=== PATIENT | female | born 1990 | race Caucasian/White ===

== ENCOUNTER 2016-09-05 22:53 | Emergency (ER) | payer OTHER ==
[2016-09-05 22:58] VITALS: RESP 16
[2016-09-05] MEDS ORDERED: TDAP ADULT 0.5 ML INJ (BOOSTRIX) IM ONE (23:14)
[2016-09-06] MEDS ORDERED: CEPHALEXIN 500 MG CAP PO ONE (00:33)
--- NOTE | 2016-09-06 01:13 | EDPHY ---
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 Approximately an hour and a half ago she was walking her dog downhill when she tripped and fell striking her knee against a log and cutting it open. She has noted a significant laceration. There has been bleeding has been controlled with a dressing. She states she can still move the knee. She is ambulating well. She denies abnormal coolness or paresthesias in the leg. No other trauma reported. She is unsure of her last tetanus shot. - Personal History LMP (Females 10-55): 1-7 Days Ago Current Tetanus/Diphtheria Vaccine: No Current Tetanus Diphtheria and Acellular Pertussis (TDAP): No Tetanus Vaccine Date: WITHIN 10 YRS - Medical/Surgical History Hx Asthma: No Hx Chronic Respiratory Disease: No Hx Diabetes: No Hx Cardiac Disease: No Hx Renal Disease: No Hx Cirrhosis: No Hx Alcoholism: No Hx HIV/AIDS: No Hx Splenectomy or Spleen Trauma: No Other PMH: DENIES - Social History Smoking Status: Current every day smoker - Physical Exam Exam: General: Alert, nontoxic Skin: There is a 7 cm laceration inferior to the right knee that is midline. It is explored to its base without evidence of deep structure injury or foreign body contamination. Musculoskeletal: Patient right knee and leg is nontender to palpation. She is flexing and extending the knee well without difficulty. The knee joint appears stable. Vascular: DP and PT pulses 2+. Neurologic: Sensation intact throughout the right leg. Constitutional: Initial Vital Signs Temperature (C) 36.6 C 09/05/16 22:56 Heart Rate 79 09/05/16 22:56 Respiratory Rate 16 09/05/16 22:56 Blood Pressure 120/85 H 09/05/16 22:56 O2 Sat (%) 95 09/05/16 22:56 O2 Delivery Mode Room Air Allergies/Adverse Reactions: gluten Allergy (Verified 09/05/16 22:56) Home Medications: Medication Instructions Recorded Cephalexin [Keflex] 500 mg PO QID 7 Days 09/06/16 Medical Decision Making - Diagnostics Imaging: X-ray series of the right knee does show soft tissue injury, no bony fractures or foreign bodies appreciated Procedures: Procedure: Laceration repair. Verbal consent was obtained from the patient. The 7 cm laceration on the right leg was anesthetized in the usual fashion. The wound was irrigated, draped and explored to its base with a gloved finger. There were no deep structures involved. No tendon injury was identified. The wound was repaired with 4 0 Ethilon, 14 simple interrupted sutures. The wound repair was simple. The procedure was performed by myself. ED Course/Re-evaluation: Patient seen under the supervision of my secondary supervising physician Dr. Zari Hunter. Patient presents to the emergency department for a right leg laceration inferior to the right knee. Patient is nontoxic. Her leg appears neurovascularly intact. The wound is thoroughly explored without evidence of foreign body contamination or deep structure injury. X-ray is obtained and unremarkable. The wound is copiously irrigated with 3 L of normal saline using a [place]. It is then repaired as per above note and dressed. Patient will be started on antibiotics. Patient will be discharged home. Home care was discussed. She is referred to orthopedics for recheck. Strict return precautions are given. Patient voiced understanding and agreement with plan. Differential Diagnosis: Included but not limited to laceration, deep structure injury, foreign body contamination - Data Points Medications Given: Discontinued Medications Cephalexin HCl (Keflex) 500 mg PO EDNOW ONE PRN Reason: Protocol Stop: 09/06/16 00:34 Last Admin: 09/06/16 00:36 Dose: 500 mg Diphtheria/Tetanus/Acell Pertussis (Boostrix) 0.5 ml IM .ONCE ONE Stop: 09/05/16 23:15 Last Admin: 09/05/16 23:39 Dose: 0.5 ml Departure - Departure Disposition: Home, Routine, Self-Care Clinical Impression: Leg laceration Qualifiers: Encounter type: initial encounter Laterality: right Qualified Code(s): S81.811A - Laceration without foreign body, right lower leg, initial encounter Condition: Good Instructions: Care For Your Stitches (ED), Laceration (ED), Acute Wound Care ( ED) Additional Instructions: Follow-up with an orthopedic doctor for continued evaluation and care Stitches to be removed in 14 days If symptoms worsen or new symptoms develop return to the emergency department for recheck Referrals: NONE *PRIMARY CARE P,. [Primary Care Provider] - As per Instructions Grace Burrows MD [Medical Doctor] - As per Instructions Prescriptions: Cephalexin [Keflex] 500 mg PO QID 7 Days
[2016-09-06 01:23] VITALS: BP 118/65; PULSE 74; TEMP 98.1; O2SAT 96
== END 2016-09-06 01:23 | disposition home or self-care (01) ==
PROC: 0HQKXZZ Repair Right Lower Leg Skin, External Approach (ICD-10-PCS; principal; 2016-09-05)
DX: S81.811A Laceration without foreign body, right lower leg, initial encounter (principal); Z23 Encounter for immunization; W01.0XXA Fall on same level from slipping, tripping and stumbling without subsequent striking against object, initial encounter; Y92.828 Other wilderness area as the place of occurrence of the external cause; Y99.8 Other external cause status; Y93.K1 Activity, walking an animal; F17.200 Nicotine dependence, unspecified, uncomplicated

== ENCOUNTER 2016-09-25 22:51 | Emergency (ER) | payer OTHER ==
[2016-09-25 22:58] VITALS: BP 128/88; PULSE 75; RESP 18; TEMP 97.7; O2SAT 97
--- NOTE | 2016-09-25 23:27 | EDPHY ---
H & P Time Seen by Provider: 09/25/16 23:10 HPI/ROS: CHIEF COMPLAINT: Right knee laceration HISTORY OF PRESENT ILLNESS: 26-year-old female was initially seen emergency department 09/06/2016 after she sustained an accidental laceration to her right knee at which point she had wound closure. The stitches were subsequently removed by friend on day 13 as she did not feel like returning to the ER. States that the wound had been healing well however tonight she bumped the area and opened again. PHYSICAL EXAM (Prior to examination, patient consented to physical exam, hands were washed and my usual and customary physical exam procedures followed) 1) GENERAL: Well-developed, well-nourished, alert and oriented. Appears to be in no acute distress. 2) HEAD: Normocephalic 3) HEENT: sclera anicteric 4) LUNGS: Breathing comfortably. 5) SKIN: on the right knee patient has a 4 cm flap laceration with viable flap tissue which does not appear to have granulated in any significant manner. There are no signs of infection. The wound is flap open . There is no erythema. No discharge. No fetid odor. 6) MUSCULOSKELETAL: full flexion extension of the right knee without deficit. Smoking Status: Current every day smoker Constitutional: Initial Vital Signs Temperature (C) 36.5 C 09/25/16 22:56 Heart Rate 75 09/25/16 22:56 Respiratory Rate 18 09/25/16 22:56 Blood Pressure 128/88 H 09/25/16 22:56 O2 Sat (%) 97 09/25/16 22:56 O2 Delivery Mode Room Air Allergies/Adverse Reactions: gluten Allergy (Verified 09/25/16 22:55) Home Medications: Medication Instructions Recorded Cephalexin [Keflex] 500 mg PO TID 5 Days 09/25/16 MDM/Departure - MDM Procedures: Procedure: Laceration repair. I explained the indications, risks and benefits for both laceration repair and anesthetic administration. Verbal consent was obtained from the patient . The laceration on the right knee was anesthetized using 0.5% bupivicaine with epinephrine . After anesthetic administered the patient was observed for a period of time and had no apparent adverse effects. The wound was cleaned, prepped, draped in normal sterile fashion and explored to its base. No foreign body seen, no foreign bodies palpated. The wound was repaired with 5 simple interrupted 4 0 Vicryl subcutaneous sutures and 3 horizontal mattress 4 0 Prolene sutures. The wound repair was complex. The procedure was performed by myself. Patient has been informed that scarring will occur, although efforts have been made to minimize this. ED Course/Re-evaluation: This patient has a laceration which initially occurred 22 days ago. She did not seek medical attention to have the stitches removed. States that the wound dehisced earlier this evening. Surprisingly, on exam, there appears to be very little healing that has occurred on this wound. Does not appear infected. Because the wound is a flap and is exposed area I do not think that leaving the area to heal via secondary intention is appropriate, safe, therapeutic option as I am concerned about infection and the tissue catching on clothing and similar. Subsequently, the wound was gently reattached, tacked together. She has been informed however that this tissue may necrose and that it may not take given the length of time that has passed already. She has been informed that she may necessitate revision of this area as well. I am starting her on prophylactic Keflex and I am recommending she follow up with orthopedic surgery as she may need wound revision. She is agreeable with this plan. - Depart Disposition: Home, Routine, Self-Care Clinical Impression: Laceration of right knee Qualifiers: Encounter type: initial encounter Qualified Code(s): S81.011A - Laceration without foreign body, right knee, initial encounter Condition: Good Instructions: Care For Your Stitches (ED), Laceration (ED) Additional Instructions: Return to the ER if you develop redness, swelling, discharge, warmth to the wound, red streaks going up your leg, or any other symptoms that concern you. Prescriptions: Cephalexin [Keflex] 500 mg PO TID 5 Days Referrals: Ken Kaplan MD [Medical Doctor] - 5-7 days, call for appt. (Sutures to be removed in 14 days which may be removed in the ER , generally at no extra charge.)
== END 2016-09-25 23:58 | disposition home or self-care (01) ==
PROC: 0HQKXZZ Repair Right Lower Leg Skin, External Approach (ICD-10-PCS; principal; 2016-09-25)
DX: S81.011A Laceration without foreign body, right knee, initial encounter (principal); F17.200 Nicotine dependence, unspecified, uncomplicated; W22.8XXA Striking against or struck by other objects, initial encounter